=== PATIENT | female | born 1970 | race Caucasian/White ===

== ENCOUNTER → 2016-08-26 | Outpatient (CLI) | payer OTHER ==
[~2016-08-26] MED LIST: HUMALOG PEN100 U/ML SQ; IBU800 M1 PO; LEVEMIR100 U/ML SQ; PERCOCET 325 MG1 TA2 PO; PRENATAL1 TA7 PO
== END ==
LOC: SUN.DIA 09:50
DX: O24.419 Gestational diabetes mellitus in pregnancy, unspecified control (principal); Z3A.34 34 weeks gestation of pregnancy; Z71.3 Dietary counseling and surveillance
CPT/HCPCS: G0108

== ENCOUNTER 2016-09-29 11:15 | Inpatient (IN) | payer OTHER ==
[~2016-09-29] VITALS: Ht 167.6 cm; Wt 80.5 kg
[2016-09-29] VITALS (45 sets, daily range): BP systolic 81–122; BP diastolic 45–80; PULSE 60–89; TEMP 97.3–98.2
[2016-09-29] MEDS ORDERED: LEVEMIR100 U/ML SQ (12:02)
[2016-09-29] MEDS ORDERED: PRENATAL1 TA7 PO (12:04)
[2016-09-29] MEDS ORDERED: HUMALOG PEN100 U/ML SQ (12:04)
[2016-09-29 13:37] LABS: BASO % 0.4 % (0.0-2.0); EOS # 0.1 (0.0-0.7); EOS % 1.3 % (0-4.0); GRAN # 5.5 (1.4-6.5); GRAN % 70.2 % (42.2-75.2); LYMPH # 1.5 (1.2-3.4); LYMPH % 18.8 % (20.0-51.0); MEAN CELL VOLUME 90 fl (80.0-100.0); MEAN CORPUSCULAR HGB CONC 33 g/dl (33.0-37.0); MEAN PLATELET VOLUME 11.9 fl (7.4-10.4); MONO # 0.7 (0.1-0.6); MONO % 8.7 % (1.7-9.3); PLATELET COUNT 178 K/mm3 (130-400); RED BLOOD COUNT 3.83 M/mm3 (4.10-5.30); REDCELL DISTRIBUTION WIDTH-CV 13.1 % (11.5-14.5); WHITE BLOOD COUNT 7.8 K/mm3 (4.8-10.8)
[2016-09-29 13:39] LABS: HEMATOCRIT 34.3 % (37.0-47.0); HEMOGLOBIN 11.3 g/dl (12.5-16.0); MEAN CORPUSCULAR HEMOGLOBIN 30 pg (27.0-31.0)
[2016-09-30] VITALS: BP 107/61; PULSE 77
[2016-09-30 01:00] VITALS: BP 106/54; PULSE 67; TEMP 98
[2016-09-30 05:15] VITALS: BP 102/65; PULSE 81; TEMP 98.2
[2016-09-30 07:35] VITALS: BP 107/66; PULSE 96; TEMP 97.8
[2016-09-30 14:00] VITALS: BP 103/70; PULSE 90; TEMP 98
[2016-09-30 19:45] VITALS: BP 138/78; PULSE 73; TEMP 97.8
[2016-10-01 07:57] VITALS: BP 106/76; PULSE 78; TEMP 98
[2016-10-01] MEDS ORDERED: IBU800 M1 PO (08:39)
[2016-10-01] MEDS ORDERED: PERCOCET 325 MG1 TA2 PO (08:39)
== END 2016-10-01 10:40 | disposition home or self-care (01) | DRG 775 ==
LOC: LDRO 11:15 → OB 11:30 → LDR 11:30 → OB 09-30 00:20 → LDRO 10-12 15:02
PROVIDERS: Obstetrics & Gynecology
PROC: 10E0XZZ Delivery of Products of Conception, External Approach (ICD-10-PCS; principal; 2016-09-29)
PROC: 0KQM0ZZ Repair Perineum Muscle, Open Approach (ICD-10-PCS; 2016-09-29)
DX: O42.02 Full-term premature rupture of membranes, onset of labor within 24 hours of rupture (principal); O09.523 Supervision of elderly multigravida, third trimester; O70.1 Second degree perineal laceration during delivery; O24.424 Gestational diabetes mellitus in childbirth, insulin controlled; Z3A.38 38 weeks gestation of pregnancy; Z37.0 Single live birth
CPT/HCPCS: J1815; J2590; J7120